=== PATIENT | female | born 1955 | race Caucasian/White ===

== ENCOUNTER → 2018-05-11 | Outpatient (CLI) | payer OTHER ==
[2018-05-11 09:27] LABS: ABSOLUTE BASOPHILS # (AUTO) 0.1 10^3/uL (0.0-0.2); ABSOLUTE EOSINOPHILS # (AUTO) 0.1 10^3/uL (0.0-0.6); ABSOLUTE LYMPHOCYTES (AUTO) 1.7 10^3/uL (0.5-4.7); ABSOLUTE MONOCYTES (AUTO) 0.4 10^3/uL (0.1-1.4); BASOPHILS % (AUTO) 1.8 % (0-2); EOSINOPHILS % (AUTO) 2.2 % (0-6); HEMATOCRIT 46.4 % (36.0-47.0); HEMOGLOBIN 15.9 g/dL (12.0-15.5); MEAN CORPUSCULAR HEMOGLOBIN 32.9 pg (27.0-33.4); MEAN CORPUSCULAR HGB CONC 34.2 g/dL (32.0-36.0); MEAN CORPUSCULAR VOLUME 96 fl (80-97); MONOCYTES % (AUTO) 6.9 % (3-13); PLATELET COUNT 255 10^3/uL (150-450); RED BLOOD COUNT 4.83 10^6/uL (3.72-5.28); RED CELL DISTRIBUTION WIDTH 12.6 % (11.5-14.0); SEGMENTED NEUTROPHILS % (AUTO) 57.1 % (42-78); TOTAL CELLS COUNTED % (AUTO) 100 %; WHITE BLOOD COUNT 5.3 10^3/uL (4.0-10.5)
[2018-05-11 09:41] LABS: ALANINE AMINOTRANSFERASE 30 U/L (9-52); ALBUMIN 4.6 g/dL (3.5-5.0); ALKALINE PHOSPHATASE 74 U/L (38-126); ANION GAP 12 (5-19); ASPARTATE AMINO TRANSFERASE 29 U/L (14-36); BILIRUBIN,DIRECT 0.2 mg/dL (0.0-0.4); BILIRUBIN,TOTAL 0.8 mg/dL (0.2-1.3); BLOOD UREA NITROGEN 16 mg/dL (7-20); CALCIUM 10.1 mg/dL (8.4-10.2); CARBON DIOXIDE 29 mmol/L (22-30); CHLORIDE 104 mmol/L (98-107); CHOLESTEROL 198.46 mg/dL (0-200); GLUCOSE 103 mg/dL (75-110); POTASSIUM 4.8 mmol/L (3.6-5.0); SODIUM 144.6 mmol/L (137-145); TOTAL PROTEIN 7.5 g/dL (6.3-8.2); TRIGLYCERIDES 148 mg/dL (<150)
[2018-05-11 09:52] LABS: DIRECT LDL 118 mg/dL (<100)
== END ==
LOC: OD 08:21
PROVIDERS: ATTEND Internal Medicine
DX: I10 Essential (primary) hypertension (principal); Z79.899 Other long term (current) drug therapy; E78.00 Pure hypercholesterolemia, unspecified
CPT/HCPCS: 36415; 80053; 80061; 85025